=== PATIENT | female | born 1975 | race Caucasian/White ===

== ENCOUNTER 2018-08-11 15:48 | Observation (INO) ==
--- NOTE | 2018-08-11 16:52 | ED ---
HPI General Chief complaint: Abdominal Pain Stated complaint: abd pain/abnormal lab results Time Seen by Provider: 08/11/18 16:51 Source: patient Mode of arrival: ambulatory Limitations: no limitations History of Present Illness HPI narrative: 42-year-old female with history of GERD, recent laparoscopic appendectomy 4 days ago in [facility] by Dr. Hill, presents to the emergency department today with pictures of what she alleges she was told is an tubal ovarian abscess, discovered during her appendectomy. 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 She states she has persistent right lower quadrant pain, sharp, stabbing, constant. She states it is worse with any position change. She states last night it was at its peak and then she felt like it ruptured and her entire abdomen became painful. States she is unable to sleep. Pain is a 10 out of 10. She has been nauseous and vomiting. She has had subjective fever chills. She did not call the surgeon because she tells me that the postop instructions did not say to contact him unless there were problems with the incision site. She has right thick vaginal discharge. She denies any difficulty urinating. She has been constipated. She has no other symptoms to report. Related Data Home Medications Medication Instructions Recorded Confirmed doxycycline hyclate 100 mg PO BID 08/11/18 08/11/18 hydrocodone-acetaminophen 1 tab PO Q4H PRN 08/11/18 08/11/18 omeprazole 40 mg PO DAILY 08/11/18 08/11/18 thyroid (pork) [[place] Thyroid] 30 mg PO DAILY 08/11/18 08/11/18 Allergies Allergy/AdvReac Type Severity Reaction Status Date / Time acetaminophen Allergy Severe SOB/SWELLIN Verified 08/11/18 16:12 G latex Allergy Severe Hives Verified 08/11/18 16:12 oxycodone Allergy Severe SOB/SWELLIN Verified 08/11/18 16:12 G shrimp Allergy Severe SEVERE Verified 08/11/18 16:12 SWELLING Iodinated Contrast- Oral and Allergy Anaphylaxis Verified 08/11/18 18:59 IV Dye [Contrast] Review of Systems ROS: all other systems reviewed are negative PMFSH History History Provided By: Patient Medical History Medical History Peter's thyroiditis (Acute) Peptic ulcer disease (Acute) Surgical History Surgical History H/O section (Acute) H/O hernia repair (Acute) H/O tubal ligation (Acute) History of appendectomy (Acute) Social History Social History Substance History: Active Abuse Smoking Status: Current every day smoker Tobacco Type: Cigarettes How Often Do You Have a Drink Containing Alcohol: Monthly or less Recent Travel in [facility] [[email or web address] within the Last 8 Weeks: No Recent Out of Country Travel within the Last 8 Weeks: No Exam Narrative Exam Narrative: GENERAL: Well-nourished female patient, in no acute distress SKIN: Focused skin assessment warm/dry. There is a horizontal incision site with Steri-Strips in place in the lower abdomen without erythema or edema. There is mild bruising around it. HEAD: Atraumatic. Normocephalic. EYES: Pupils equal and round. No scleral icterus. No injection or drainage. ENT: No nasal bleeding or discharge. Mucous membranes pink and moist. NECK: Trachea midline. No JVD. CARDIOVASCULAR: Elevated rate and rhythm. No murmur appreciated. RESPIRATORY: No accessory muscle use. Clear to auscultation. Breath sounds equal bilaterally. GASTROINTESTINAL: Abdomen soft, nondistended. Generalized tenderness to palpation with guarding. No rebound tenderness. Hepatic and splenic margins not palpable. MUSCULOSKELETAL: No obvious deformities. No clubbing. No cyanosis. No edema. NEUROLOGICAL: Awake and alert. No obvious cranial nerve deficits. Motor grossly within normal limits. Normal speech. PSYCHIATRIC: Appropriate mood and affect; insight and judgment normal. Course Reevaluation(s) Reevaluation #1: The patient was initially evaluated by the nurse practitioner and the previous provider. See their notes for further details. The patient was admitted for intractable abdominal pain, however shortly after being admitted she decided that she wanted to go home instead. Briefly she is a 42- year-old female who is 2 days postop appendectomy. The surgeon told her that she had an abnormal appearing ovary on the right and advised that she follow-up with an [employer] physician. Her pain worsened this evening over her right lower quadrant. CT abdomen pelvis shows no acute intra-abdominal pathology with a 3.6 cm right ovarian cyst and some free air which is likely iatrogenic from her laparoscopy . Pelvic exam was performed by the nurse practitioner and showed some vaginal discharge and the patient was advised to be empirically treated, however she declined treatment until results of her GC and chlamydia test. Wet prep is negative. Pelvic ultrasound shows a 2 x 2.5 x 2.2 cm right ovarian cyst with no signs of torsion, normal uterus. Patient reports that she has an [employer] appointment scheduled for tomorrow morning and would like to go home. She has pain medication already prescribed. She is requesting a prescription for something for nausea. I will give her a prescription for Zofran. She was advised on when to return to the emergency department. She verbalizes understanding and agreement with plan. Initial Documented Vital Signs Temperature 98.6 F 08/11/18 16:04 Pulse Rate 111 H 08/11/18 16:04 Respiratory Rate 18 08/11/18 16:04 Blood Pressure 157/106 H 08/11/18 16:04 Pulse Oximetry 99 08/11/18 16:04 Last Documented Vital Signs Temperature 98.2 F 08/11/18 23:00 Pulse Rate 87 08/11/18 23:00 Respiratory Rate 16 08/11/18 23:00 Blood Pressure 136/83 08/11/18 23:00 Pulse Oximetry 98 08/11/18 23:00 Medical Decision Making SCOTT Attestation SCOTT supervised visit: Yes Attestation: I, [-], have reviewed the advance practice practitioner's documentation and am in agreement, met with the patient face to face, made the diagnosis, and the medical decision making was done by me. *My assessment and Findings: Reviewed labs. [facility] Narrative Medical decision making narrative: 42-year-old female presents emergency department for evaluation of persistent, worsening right lower quadrant pain. Patient had an appendectomy done on Wednesday and pain is likely postop and secondary air from the laparoscopic procedure. However patient has generalized tenderness to palpation of her abdomen. It is soft. CT imaging is consistent with a cyst on the right adnexa. Ultrasound confirms no torsion. Pelvic exam is with wet prep negative. GC chlamydia is pending. Patient has been given 2 doses of morphine and a dose of Toradol and her pain still persists. I discussed the patient my attending physician was also assessed the patient. She will be admitted observation for intractable abdominal pain. Patient is in agreement with this plan of care. Records have not yet arrived from [facility] , however patient does have a folder with some information in it. Medical Screen Exam Complete: Yes Emergency Medical Condition: Yes Differential Diagnosis Differential Diagnosis: Postop pain versus postop infection versus STD versus PID versus UTI Medical Records Medical records reviewed: Yes I reviewed the patient's medical records. Lab Data Lab results reviewed: Yes I reviewed the patient's lab results. Result diagrams: 08/11/18 17:30 08/11/18 17:30 POC Results POC Urine Results Negative Lab Results 08/11/18 08/11/18 08/11/18 Range/Units 17:30 17:30 17:30 WBC 7.8 (4.0-11.0) th/mm3 RBC 4.19 (4.00-5.30) mil/mm3 Hgb 13.7 (11.6-15.3) gm/dL Hct 39.6 (35.0-46.0) % MCV 94.6 (80.0-100.0) fL MCH 32.7 (27.0-34.0) pg MCHC 34.5 (32.0-36.0) % RDW 12.8 (11.6-17.2) % Plt Count 328 (150-450) th/mm3 MPV 8.1 (7.0-11.0) fL Prelim Diff (Auto) Slide review pending Neut % (Auto) 71.3 H (16.0-70.0) % Lymph % (Auto) 20.0 (9.0-44.0) % [place] % (Auto) 5.4 (0.0-8.0) % Eos % (Auto) 2.5 (0.0-4.0) % Baso % (Auto) 0.8 (0.0-2.0) % Neut # (Auto) 5.5 (1.8-7.7) th/mm3 Lymph # (Auto) 1.6 (1.0-4.8) th/mm3 [place] # (Auto) 0.4 (0.0-0.9) th/mm3 Eos # (Auto) 0.2 (0.0-0.4) th/mm3 Baso # (Auto) 0.1 (0.0-0.2) th/mm3 WBC Differential . Differential Comment . Sodium 140 (136-145) meq/L Potassium 3.7 (3.5-5.1) meq/L Chloride 106 (98-107) meq/L Carbon Dioxide 25.1 (21.0-32.0) meq/L Anion Gap 9 (5-15) meq/L BUN 6 L (7-18) mg/dL Creatinine 0.86 (0.50-1.00) mg/dL Estimated GFR 72 L (>89) mL/min Random Glucose 86 (74-106) mg/dL Calcium 8.6 (8.5-10.1) mg/dL Total Bilirubin 0.4 (0.2-1.0) mg/dL AST 23 (15-37) U/L ALT 36 (10-53) U/L Alkaline Phosphatase 104 (45-117) U/L Total Protein 7.5 (6.4-8.2) g/dL Albumin 3.5 (3.4-5.0) g/dL Lipase 100 (73-393) U/L Beta HCG, Quant Less than 1 (0-5) mIU/mL Urine Color Yellow (Yellw/Straw) Urine Clarity Clear (Clear) Urine pH 6.0 (5.0-8.5) Ur Specific [place] 1.015 (1.002-1.035) Urine Protein Negative (Neg-Trace) mg/dL Urine Glucose (UA) Negative (Negative) mg/dL Urine Ketones Negative (Negative) mg/dL Urine Occult Blood Small H (Negative) Urine Nitrate Negative (Negative) Urine Bilirubin Negative (Negative) Urine Urobilinogen 4 or greater (Less than 2) mg/dL Ur Leukocyte Esterase Negative (Negative) Urine RBC 2 (0-3) /hpf Urine WBC Less than 1 (0-5) /hpf Ur Squamous Epith Cells 1 (0-5) /hpf Urine Bacteria Few H (None) /hpf Urine Mucus Few H (Occasional) /lpf Micro UA Comment Culture not ind Ur Microscopic Review Not Reportable Urine Culture Comments Culture not ind Clue Cells (Wet Prep) (None Seen) Trichomonas (Wet Prep) (None Seen) Yeast (Wet Prep) (None Seen) Chlam trachomat DNA PCR (Not Detect) N.gonorrhoeae DNA (PCR) (Not Detect) 08/11/18 08/11/18 Range/Units 21:00 21:00 WBC (4.0-11.0) th/mm3 RBC (4.00-5.30) mil/mm3 Hgb (11.6-15.3) gm/dL Hct (35.0-46.0) % MCV (80.0-100.0) fL MCH (27.0-34.0) pg MCHC (32.0-36.0) % RDW (11.6-17.2) % Plt Count (150-450) th/mm3 MPV (7.0-11.0) fL Prelim Diff (Auto) Neut % (Auto) (16.0-70.0) % Lymph % (Auto) (9.0-44.0) % [place] % (Auto) (0.0-8.0) % Eos % (Auto) (0.0-4.0) % Baso % (Auto) (0.0-2.0) % Neut # (Auto) (1.8-7.7) th/mm3 Lymph # (Auto) (1.0-4.8) th/mm3 [place] # (Auto) (0.0-0.9) th/mm3 Eos # (Auto) (0.0-0.4) th/mm3 Baso # (Auto) (0.0-0.2) th/mm3 WBC Differential Differential Comment Sodium (136-145) meq/L Potassium (3.5-5.1) meq/L Chloride (98-107) meq/L Carbon Dioxide (21.0-32.0) meq/L Anion Gap (5-15) meq/L BUN (7-18) mg/dL Creatinine (0.50-1.00) mg/dL Estimated GFR (>89) mL/min Random Glucose (74-106) mg/dL Calcium (8.5-10.1) mg/dL Total Bilirubin (0.2-1.0) mg/dL AST (15-37) U/L ALT (10-53) U/L Alkaline Phosphatase (45-117) U/L Total Protein (6.4-8.2) g/dL Albumin (3.4-5.0) g/dL Lipase (73-393) U/L Beta HCG, Quant (0-5) mIU/mL Urine Color (Yellw/Straw) Urine Clarity (Clear) Urine pH (5.0-8.5) Ur Specific [place] (1.002-1.035) Urine Protein (Neg-Trace) mg/dL Urine Glucose (UA) (Negative) mg/dL Urine Ketones (Negative) mg/dL Urine Occult Blood (Negative) Urine Nitrate (Negative) Urine Bilirubin (Negative) Urine Urobilinogen (Less than 2) mg/dL Ur Leukocyte Esterase (Negative) Urine RBC (0-3) /hpf Urine WBC (0-5) /hpf Ur Squamous Epith Cells (0-5) /hpf Urine Bacteria (None) /hpf Urine Mucus (Occasional) /lpf Micro UA Comment Ur Microscopic Review Urine Culture Comments Clue Cells (Wet Prep) None seen (None Seen) Trichomonas (Wet Prep) None seen (None Seen) Yeast (Wet Prep) None seen (None Seen) Chlam trachomat DNA PCR Not detected (Not Detect) N.gonorrhoeae DNA (PCR) Not detected (Not Detect) Imaging Data Radiologist's impression: Abdomen/Pelvis CT 08/11/18 18:11 CONCLUSION: 1. No abscess, free intraperitoneal or other acute complication related to recent appendectomy. 2. 3.6 cm cyst of the right ovary. 3. A few bubbles of gas and mild edema in the anterior abdominal wall without fluid collection, presumably iatrogenic. 4. Right kidney is mildly atrophic relative to the left. Abdomen/Pelvis/Transvag US 08/11/18 20:39 CONCLUSION: 1. Small, benign-appearing right ovarian cyst. No right ovarian torsion. 2. The left ovary is not well seen. Patient's pain is on the right. 3. No free fluid. 4. Uterus within normal limits. Discharge Plan Discharge Disposition Patient Disposition: 01 Discharge Home Discharge Condition Condition: Stable Discharge Order Discharge Orders: Discharge Order (Routine); Ordered 08/11/18 Ordered By: Vasyl Mckinley Discharge Details Diagnosis: Intractable abdominal pain, Ovarian cyst, S/P appendectomy Physicians Team ED Provider: Vasyl Mckinley ED Midlevel Provider: Elena Joshua Primary Care Provider: Primary Care Royer,Louise Attending Provider: Yessica Vallejo Other Providers: [facility],Insurance Status ED Status: Left Department Discharge Information Discharge Date/Time: 08/11/18 23:47
[2018-08-11] MEDS ORDERED: Ketorolac Inj 30 MG/ML (IVP) Vial IV.PUSH ONE (17:12)
[2018-08-11] MEDS ORDERED: Sod Chloride 0.9% Inj 1,000 ML IV.SIG ONE (17:12)
[2018-08-11] MEDS ORDERED: Morphine Inj 4 MG/ML Vial IV.PUSH ONE ×2 (17:43→20:51)
[2018-08-11 18:00] LABS: Bacteria,Urine Few /hpf; Bilirubin,Urine Negative (Negative); Clarity,Urine Clear (Clear); Color,Urine Yellow (Yellw/Straw); Glucose,Urine (UA) Negative (Negative); Leukocyte Esterase,Urine Negative (Negative); Mucus,Urine Few /lpf (Occasional); Nitrite,Urine Negative (Negative); Specific Gravity,Urine 1.015 (1.002-1.035); Squamous Epithelial Cell,Urine 1 /hpf (0-5); Urobilinogen,Urine 4 or Greater mg/dL (Less than 2)
[2018-08-11 18:07] LABS: Baso # (Auto) 0.1 th/mm3 (0.0-0.2); Baso % (Auto) 0.8 % (0.0-2.0); Eos # (Auto) 0.2 th/mm3 (0.0-0.4); Eos % (Auto) 2.5 % (0.0-4.0); Hematocrit 39.6 % (35.0-46.0); Hemoglobin 13.7 gm/dL (11.6-15.3); Lymph # (Auto) 1.6 th/mm3 (1.0-4.8); Mean Corpuscular HGB Conc 34.5 % (32.0-36.0); Mean Corpuscular Hemoglobin 32.7 pg (27.0-34.0); Mean Corpuscular Volume 94.6 fL (80.0-100.0); Mean Platelet Volume 8.1 fL (7.0-11.0); Mono # (Auto) 0.4 th/mm3 (0.0-0.9); Mono % (Auto) 5.4 % (0.0-8.0); Neut # (Auto) 5.5 th/mm3 (1.8-7.7); Neut % (Auto) 71.3 % (16.0-70.0); Platelet Count 328 th/mm3 (150-450); Red Blood Count 4.19 mil/mm3 (4.00-5.30); Red Cell Distribution Width 12.8 % (11.6-17.2); White Blood Count 7.8 th/mm3 (4.0-11.0)
[2018-08-11 18:17] LABS: Alanine Aminotransferase 36 U/L (10-53); Albumin 3.5 g/dL (3.4-5.0); Anion Gap 9 meq/L (5-15); Aspartate Aminotransferase 23 U/L (15-37); Blood Urea Nitrogen 6 mg/dL (7-18); Calcium 8.6 mg/dL (8.5-10.1); Carbon Dioxide 25.1 meq/L (21.0-32.0); Chloride 106 meq/L (98-107); Glomerular Filtration Rate 72 mL/min (>89); Glucose,Random 86 mg/dL (74-106); Lipase 100 U/L (73-393); Potassium 3.7 meq/L (3.5-5.1); Sodium 140 meq/L (136-145)
[2018-08-11 18:21] LABS: Alkaline Phosphatase 104 U/L (45-117); Total Protein 7.5 g/dL (6.4-8.2)
[2018-08-11 19:17] VITALS: O2SAT 98
--- NOTE | 2018-08-11 19:55 | CT ---
EXAM DATE: 08/11/2018 6:11 PM EDT AGE/SEX: 42 years / Female INDICATIONS: Right lower quadrant pain. Recent appendectomy. Evaluate for abscess. CLINICAL DATA: This is the patient's initial encounter. Patient reports that signs and symptoms have been present for 2 days and indicates a pain score of 8/10. MEDICAL/SURGICAL HISTORY: Ulcers. Appendectomy. Tubal ligation. Hernia repair. RADIATION DOSE: 21.91 CTDI (mGy) COMPARISON: No prior exams available for comparison. TECHNIQUE: Multiple contiguous axial images were obtained through the abdomen. Images were obtained using multiple row detector helical technique. Using automated exposure control and adjustment of the mA and/or kV according to patient size, radiation dose was kept as low as reasonably achievable to o btain optimal diagnostic quality images. DICOM format image data is available electronically for rev iew and comparison. FINDINGS: Appendectomy changes are noted. There is slight edema in the fat adjacent to the cecum. No abscess or free intraperitoneal air. In the anterior abdominal wall are a few small bubbles of gas without flui d, presumably postoperative. There is a 3.6 cm cyst of the right ovary. No associated inflammatory changes. There is no free fluid in the pelvic cul-de-sac. Liver, spleen, pancreas, adrenal glands and left kidney are within normal limits. The right kidney is modestly smaller than the left. Visualized lung bases are clear. No acute bony abnormality demonstrated. CONCLUSION: 1. No abscess, free intraperitoneal or other acute complication related to recent appendectomy. 2. 3.6 cm cyst of the right ovary. 3. A few bubbles of gas and mild edema in the anterior abdominal wall without fluid collection, pres umably iatrogenic. 4. Right kidney is mildly atrophic relative to the left. Electronically signed by: Agus Tejeda MD 08/11/2018 7:54 PM EDT
[2018-08-11] MEDS ORDERED: Aluminum/Magnesium/Simethacone Susp 30 ML UDC PO ONE (20:17)
[2018-08-11 21:43] VITALS: RESP 16
--- NOTE | 2018-08-11 22:01 | US ---
EXAM DATE: 08/11/2018 8:39 PM EDT AGE/SEX: 42 years / Female INDICATIONS: Right sided pelvic pain. CLINICAL DATA: This is the patient's initial encounter. Patient reports that signs and symptoms have been present for 1 week and indicates a pain score of 10/10. MEDICAL/SURGICAL HISTORY: . Peter's disease.Peptic ulcer disease. section. Tubal ligation. Appendectomy. Hernia repair. COMPARISON: [facility] [place], CT ABDOMEN & PELVIS W/O CONTRAST, 08/11/2018. . MEASUREMENTS: Uterus:__9.4 x 6.5 x 5.0 cm Endometrial Stripe:__5 mm Right Ovary:__ 4.3 x 3.3 x 2.8 cm Left Ovary:__ . Not visualized. FINDINGS: Uterus: The myometrium has homogeneous echotexture without mass. Endometrial Stripe: The endometrial stripe displays homogeneous echotexture. Right Ovary: There is a 2.0 x 2.5 x 2.3 cm benign-appearing right ovarian cyst. Blood flow is demons trated to the right ovary. Left Ovary: Not visualized. Fluid: No free fluid. Other: None. CONCLUSION: 1. Small, benign-appearing right ovarian cyst. No right ovarian torsion. 2. The left ovary is not well seen. Patient's pain is on the right. 3. No free fluid. 4. Uterus within normal limits. Electronically signed by: Agus Tejeda MD 08/11/2018 10:00 PM EDT
[2018-08-11 23:07] VITALS: BP 136/83; PULSE 87; TEMP 98.2
== END 2018-08-11 23:48 | disposition home or self-care (01) ==
LOC: NEPC 15:48 → NEDA 15:48
PROVIDERS: ADMIT Family Medicine; ATTEND Family Medicine